=== PATIENT | male | born 1985 | race Two or more races ===

== ENCOUNTER → 2017-11-17 | Outpatient (REF) | payer OTHER ==
[2017-11-17 14:11] LABS: CREATININE FOR GFR 0.84 MG/DL (0.70-1.30); GLOMERULAR FILTRATION RATE > 60.0 (>60)
[2017-11-17 14:11] LABS: BLOOD UREA NITROGEN 14 MG/DL (7-18)
== END ==
LOC: M LABNEURO 11:18
DX: N18.9 Chronic kidney disease, unspecified (principal)
CPT/HCPCS: 82565

== ENCOUNTER 2018-04-11 18:58 | Emergency (ER) | payer OTHER | END 2018-04-11 21:08 | disposition home or self-care (01) | LOC: M ED 18:58 | DX: M79.631 Pain in right forearm (principal); W19.XXXA Unspecified fall, initial encounter; Y92.009 Unspecified place in unspecified non-institutional (private) residence as the place of occurrence of the external cause; F17.200 Nicotine dependence, unspecified, uncomplicated; Z87.820 Personal history of traumatic brain injury; Z98.890 Other specified postprocedural states; Z79.84 Long term (current) use of oral hypoglycemic drugs; Z79.899 Other long term (current) drug therapy | CPT/HCPCS: 73090 ==

== ENCOUNTER → 2018-04-11 | Outpatient (CLI) | payer OTHER | LOC: M RAD 09:07 | DX: N63.10 Unspecified lump in the right breast, unspecified quadrant (principal) ==

== ENCOUNTER 2019-08-07 09:39 | Emergency (ER) | payer OTHER ==
[~2019-08-07] VITALS: Ht 180.3 cm; Wt 115.9 kg
[~2019-08-07 09:39] MED LIST: COLE5GRA PO; FENO48TA13 PO; GABA-845 PO; HYDR50TAB PO; METF500T13 PO
[2019-08-07] MEDS ORDERED: HYZA50TA2 PO (10:10)
[2019-08-07] MEDS ORDERED: METO37.5 PO (10:10)
[2019-08-07] MEDS ORDERED: NS 1,000 ML IV ONE (10:15)
[2019-08-07 10:39] LABS: BASO # 0.1 10^3/uL (0.0-0.2); BASO % 0.7 % (0.0-1.0); EOS # 0.1 10^3/uL (0.0-0.5); EOS % 0.6 % (0.0-3.0); HEMATOCRIT 45.3 % (42.0-52.0); HEMOGLOBIN 14.8 g/dl (13.5-17.5); LYMPH # 2.9 10^3/uL (1.5-5.0); LYMPH % 19.9 % (24.0-44.0); MEAN CORPUSCULAR HEMOGLOBIN 29.5 pg (27.0-33.0); MEAN CORPUSCULAR HGB CONC 32.7 g/dl (32.0-36.5); MEAN CORPUSCULAR VOLUME 90.2 fl (80.0-96.0); MONO # 1.2 10^3/uL (0.0-0.8); MONO % 8.1 % (0.0-5.0); NEUTROPHILS # 10.1 10^3/uL (1.5-8.5); NEUTROPHILS % 69.5 % (36.0-66.0); PLATELET COUNT, AUTOMATED 247 10^3/uL (150-450); RED BLOOD COUNT 5.02 10^6/uL (4.30-6.10); WHITE BLOOD COUNT 14.5 10^3/uL (4.0-10.0)
[2019-08-07] MEDS ORDERED: ISOVUE-370 76% 100ML VIAL (Q9967) As Ordered ONE (10:48)
[2019-08-07 11:02] LABS: ALBUMIN 3.7 GM/DL (3.2-5.2); BILIRUBIN,DIRECT 0.3 MG/DL (0.0-0.2); BILIRUBIN,TOTAL 1.2 MG/DL (0.2-1.0); TOTAL PROTEIN 6.6 GM/DL (6.4-8.2)
--- NOTE | 2019-08-07 11:52 | REP ---
CT ABDOMEN/PELVIS WITH IV CONTRAST: TECHNIQUE: Axial contrast enhanced images from the lung bases to the pubic symphysis using 100 mL Isovue 370 intravenous contrast material with multiplanar reformations. Visualized lung bases demonstrate no infiltrate. Liver demonstrates diffuse fatty infiltration. Patient has had a prior cholecystectomy. There is no definite biliary dilatation. Spleen is unremarkable. Adrenals are normal. Pancreas demonstrates no mass. There is a cyst in the upper pole of the right kidney measuring 1.6 cm in diameter. A cluster of subcentimeter calculi are seen in the left lower renal collecting system. There is no abdominal aortic aneurysm. There is no adenopathy. There is no free air or free fluid. No bowel wall thickening is seen. The appendix is normal. I see no pelvic mass. Urinary bladder is mildly distended and grossly unremarkable. IMPRESSION: No evidence of appendicitis, free air, or free fluid. No bowel wall thickening. Status post cholecystectomy. Right renal cyst. Subcentimeter intrarenal calculi on the left. Electronically Signed by Rahul Chance MD 08/08/2019 04:06 P
[2019-08-07] MEDS ORDERED: MIRA3350 PO (12:14)
[2019-08-07 12:15] VITALS: BP 128/72
== END 2019-08-07 12:24 | disposition home or self-care (01) ==
LOC: M ED 09:39
DX: K59.00 Constipation, unspecified (principal); E11.9 Type 2 diabetes mellitus without complications; I10 Essential (primary) hypertension; Z79.899 Other long term (current) drug therapy; Z79.84 Long term (current) use of oral hypoglycemic drugs; F17.210 Nicotine dependence, cigarettes, uncomplicated
CPT/HCPCS: 74177; 80047; 80076; 81001; 83690; 85025; 96360; 99284; Q9967

== ENCOUNTER 2019-10-15 21:48 | Emergency (ER) | payer OTHER ==
[~2019-10-15] VITALS: Ht 182.9 cm; Wt 119.0 kg
[~2019-10-15 21:48] MED LIST changes: -FENO48TA13 PO; +FENO48TA7 PO; +HYZA50TA2 PO; +METO37.5 PO; +MIRA3350 PO
[2019-10-15] MEDS ORDERED: DITR5TAB PO (22:00)
[2019-10-15] MEDS ORDERED: LIPI10TA PO (22:00)
[2019-10-16 00:47] LABS: BASO # 0.1 10^3/uL (0.0-0.2); BASO % 0.8 % (0.0-1.0); EOS # 0.2 10^3/uL (0.0-0.5); HEMATOCRIT 44.3 % (42.0-52.0); HEMOGLOBIN 15.1 g/dl (13.5-17.5); LYMPH # 3.2 10^3/uL (1.5-5.0); LYMPH % 40.5 % (24.0-44.0); MEAN CORPUSCULAR HEMOGLOBIN 29.8 pg (27.0-33.0); MEAN CORPUSCULAR HGB CONC 34.1 g/dl (32.0-36.5); MEAN CORPUSCULAR VOLUME 87.5 fl (80.0-96.0); MONO # 0.8 10^3/uL (0.0-0.8); MONO % 10.6 % (0.0-5.0); NEUTROPHILS # 3.6 10^3/uL (1.5-8.5); NEUTROPHILS % 45.8 % (36.0-66.0); PLATELET COUNT, AUTOMATED 238 10^3/uL (150-450); RED BLOOD COUNT 5.06 10^6/uL (4.30-6.10); WHITE BLOOD COUNT 7.9 10^3/uL (4.0-10.0)
[2019-10-16 01:49] VITALS: BP 154/86
[2019-10-16] MEDS ORDERED: NAPR500T6 PO (02:03)
[2019-10-16] MEDS ORDERED: NAPROXEN 250 MG TAB PO ONE (02:15)
--- NOTE | 2019-10-16 08:00 | REP ---
Left great toe four views : There is no fracture or dislocation. Mineralization and joint spaces are normal. There are no calcifications or foreign bodies. Impression: Negative left great toe . Electronically Signed by Rahul Lee MD 10/16/2019 07:51 A
== END 2019-10-16 02:14 | disposition home or self-care (01) ==
LOC: M ED 21:48
DX: M10.072 Idiopathic gout, left ankle and foot (principal); E11.9 Type 2 diabetes mellitus without complications; F17.200 Nicotine dependence, unspecified, uncomplicated; Z79.84 Long term (current) use of oral hypoglycemic drugs; Z79.899 Other long term (current) drug therapy